=== PATIENT | female | born 1935 | race Caucasian/White ===

== ENCOUNTER → 2017-11-30 17:29 | Outpatient (CLI) | payer MEDICARE, OTHER ==
[2015-06-12 13:31] VITALS: BMI 16.0
[~2017-11-30 17:29] MED LIST: ALIGN4 MG PO; ATROVENT 0.02%2.5 ML UPD; BIOTIN5 MG PO; CENTRUM SILVER1 TA1 PO; CRESTOR20 MG PO; DITROPAN X5 MG/BOTTL PO; ESTRACE1 MG PO; K-TAB10 MEQ PO; LACTINEX GRANUL1 PCK NG; LASIX20 MG PO; LEVSIN/ANASP0.125 MG SL; LOPRESSOR25 MG PO; MEGACE40 MG PO; MERREM 1 GM/NS 11 G1 IV; METOPROLOL TART25 MG PO; MUCINEX DM ER1 EAC1 PO; NITRO-BID60 GM TOPICAL; NYSTATIN ORAL SU5 ML PO; OMEPRAZOLE20 M1 PO; PEPCID20 MG PO; PROTONIX40 MG PO; STOOL SOFTENER100 M1 PO; ULTRAM50 MG PO; VANCOMYCIN 1 GM/1 G1 IV; XANAX0.25 MG PO; ZOFRAN ODT4 MG/UDTAB PO; ZOLOFT50 MG PO
== END | disposition home or self-care (01) ==
LOC: D.LABREF 17:29
DX: N39.0 Urinary tract infection, site not specified (principal); R31.9 Hematuria, unspecified

== ENCOUNTER 2017-12-30 06:00 | Day surgery (SDC) | payer MEDICARE, OTHER ==
[~2017-12-30] VITALS: Ht 162.6 cm; Wt 40.8 kg
--- NOTE | ~2017-12-30 | OP ---
PATIENT NAME: CONOR SANCHEZ MEDICAL RECORD: [id number] :37 LOCATION:[facility] ADMISSION DATE: SURGEON: RUBY CURTIS MD DATE OF OPERATION: 12/30/2017 SURGEON: Ruby Curtis MD ANESTHESIA: MAC by Luis Orosco CRNA. PREOPERATIVE DIAGNOSIS: Refugio hematuria, recurrent urinary tract infections. PROCEDURE: Cystoscopy. FINDINGS: Single ureteral orifices bilaterally. Some bladder inflammation was noted. No bladder tumors. No urethral graft erosion. BLOOD LOSS: None. CLINICAL HISTORY: This is an 82-year-old female who has previously had a pubovaginal sling with mesh. She has had episodes of refugio hematuria as well as urge urinary incontinence and recurrent urinary tract infections. The urge incontinence has been treated with Myrbetriq 50 mg. She has had a CT scan of the abdomen and pelvis, which shows normal kidneys. She comes today to have cystoscopy to check for bladder tumors or mesh erosion. She is ALLERGIC TO KENALOG, FLOXIN, CODEINE, AND MOBIC. She was given Ancef 1 gram IV front maker to the OR. DESCRIPTION OF PROCEDURE: The patient was given IV sedation. She was placed in the dorsal lithotomy position and prepped and draped. A 17-[place]amanian cystoscope with 30-degree lens was used for visualization. Findings are as outlined above. No graft erosion was seen. She does have quite significant vaginal atrophy. The bladder was emptied through the scope and then the scope was removed. I will see her in followup in 1-2 weeks' time. At that time, I will discuss vaginal estrogen supplementation with her. TRANSINT:[id number] Voice Confirmation ID: [id number] DOCUMENT ID: [id number] RUBY CURTIS MD at 1121 CC: [id number] DICTATION DATE: 12/30/17 0859 GEOMORPHOLOGIST: 12/30/17 1103 [facility] [address] [place] [address]
[2017-12-30 06:49] VITALS: BP 168/97; Ht 162.6 cm; Wt 40.8 kg
[2017-12-30 06:49] LABS: BASOPHILS 0.2 % (0-2); EOSINOPHILS 1.9 % (0-7); HEMATOCRIT 40.5 % (36.0-48.0); HEMOGLOBIN 13.5 g/dL (12-16); IMMATURE GRANULOCYTES 0.2 % (0-5); LYMPHOCYTES 30.1 % (15-50); MCHC 33.3 g/dL (31.0-37.0); MCV 93.1 fL (80.0-100.0); MEAN PLATELET VOLUME 10.4 fL (7.4-10.4); MONOCYTES 9.1 % (2-11); NEUTROPHILS 58.5 % (40-80); RBC 4.35 10x6/uL (4.00-5.40); RDW 14.9 % (11.5-14.5); WBC 8.1 10x3/uL (4.8-10.8)
[2017-12-30 06:55] LABS: PROTIME 12.8 SECONDS (11.6-15.0)
[2017-12-30 07:00] LABS: PLATELET COUNT 146 10x3/uL (130-400)
[2017-12-30 07:28] LABS: ANION GAP 13.7 mmol/L (8-16); CALCIUM 9.3 mg/dL (8.5-10.1); CARBON DIOXIDE 29.1 mmol/L (21.0-32.0); POTASSIUM - SERUM 3.8 mmol/L (3.5-5.1)
== END 2017-12-30 10:40 | disposition home or self-care (01) ==
LOC: D.OPS 06:00 → D.PAN 08:15 → D.OPS 08:15 → D.PAN 08:30 → D.OPS 10:40
PROVIDERS: Anesthesiology
DX: R31.9 Hematuria, unspecified (principal); N39.0 Urinary tract infection, site not specified; R00.0 Tachycardia, unspecified; Z01.812 Encounter for preprocedural laboratory examination

== ENCOUNTER → 2018-01-07 19:30 | Outpatient (CLI) | payer MEDICARE, OTHER ==
[2017-12-30 06:49] VITALS: BMI 15.4
== END | disposition home or self-care (01) ==
LOC: D.LABREF 19:30
DX: N39.0 Urinary tract infection, site not specified (principal)

== ENCOUNTER → 2018-01-25 18:43 | Outpatient (CLI) | payer MEDICARE, OTHER ==
[2017-12-30 06:49] VITALS: BMI 15.4
[2018-01-25 19:36] LABS: APPEARANCE CLEAR (CLEAR); COLOR YELLOW (YELLOW); SPECIFIC GRAVITY 1.015 (1.005-1.020)
[2018-01-25 19:37] LABS: BILIRUBIN NEGATIVE (NEGATIVE); GLUCOSE NEGATIVE (NEGATIVE); KETONE NEGATIVE (NEGATIVE); NITRITE POSITIVE (NEGATIVE); PROTEIN NEGATIVE (NEGATIVE); UROBILINOGEN NORMAL (NORMAL); WHITE CELLS - URINE 0-5 /hpf (0-5)
[2018-01-25 19:38] LABS: BACTERIA FEW /hpf (NONE SEEN); EPITHELIAL CELLS OCC /hpf (0-5); RED CELLS - URINE OCC /hpf (0-5)
== END | disposition home or self-care (01) ==
LOC: D.LABREF 18:43
PROVIDERS: Urology
DX: N39.0 Urinary tract infection, site not specified (principal)

== ENCOUNTER → 2018-02-23 14:21 | Outpatient (CLI) | payer MEDICARE, OTHER ==
[2017-12-30 06:49] VITALS: BMI 15.4
== END | disposition home or self-care (01) ==
LOC: D.LABREF 14:21
DX: N39.0 Urinary tract infection, site not specified (principal)

== ENCOUNTER → 2018-06-01 17:20 | Outpatient (CLI) | payer MEDICARE ==
[2017-12-30 06:49] VITALS: BMI 15.4
== END | disposition home or self-care (01) ==
LOC: D.LABREF 17:20
DX: D72.829 Elevated white blood cell count, unspecified (principal); R31.9 Hematuria, unspecified

== ENCOUNTER → 2018-06-27 19:31 | Outpatient (CLI) | payer MEDICARE ==
[2017-12-30 06:49] VITALS: BMI 15.4
== END | disposition home or self-care (01) ==
LOC: D.LABREF 19:31
DX: D72.829 Elevated white blood cell count, unspecified (principal)

== ENCOUNTER → 2018-07-13 17:28 | Outpatient (CLI) | payer MEDICARE ==
[2017-12-30 06:49] VITALS: BMI 15.4
== END | disposition home or self-care (01) ==
LOC: D.LABREF 17:28
DX: D72.829 Elevated white blood cell count, unspecified (principal)

== ENCOUNTER → 2018-10-20 18:49 | Outpatient (CLI) | payer MEDICARE ==
[2017-12-30 06:49] VITALS: BMI 15.4
== END | disposition home or self-care (01) ==
LOC: D.LABREF 18:49
DX: N39.0 Urinary tract infection, site not specified (principal)

== ENCOUNTER → 2018-12-30 17:14 | Outpatient (CLI) | payer MEDICARE ==
[2017-12-30 06:49] VITALS: BMI 15.4
== END | disposition home or self-care (01) ==
LOC: D.LABREF 17:14
PROVIDERS: ATTEND Urology
DX: N39.0 Urinary tract infection, site not specified (principal); R31.9 Hematuria, unspecified

== ENCOUNTER → 2019-01-20 13:34 | Outpatient (CLI) | payer MEDICARE, OTHER ==
[2017-12-30 06:49] VITALS: BMI 15.4
== END | disposition home or self-care (01) ==
LOC: D.HCCARDIO 13:34
PROVIDERS: ATTEND Internal Medicine Cardiovascular Disease
DX: I34.0 Nonrheumatic mitral (valve) insufficiency (principal)